=== PATIENT | female | born 1965 | race Asian ===

== ENCOUNTER 2024-07-03 02:45 | Emergency (ER) | payer OTHER ==
[~2024-07-03] VITALS: Ht 157.5 cm; Wt 68.0 kg
[2024-07-03 03:57] VITALS: BP 133/79; O2SAT 98
== END 2024-07-03 03:58 | disposition home or self-care (01) ==
LOC: ER 02:59
DX: E11.9 Type 2 diabetes mellitus without complications (principal); Z79.4 Long term (current) use of insulin; E03.9 Hypothyroidism, unspecified; Z88.2 Allergy status to sulfonamides
CPT/HCPCS: A4606; A4663